=== PATIENT | male | born 2005 | race Caucasian/White ===

== ENCOUNTER 2023-03-14 18:39 | Emergency (ER) | payer BC, MEDICAID ==
[~2023-03-14] VITALS: Ht 177.8 cm; Wt 77.3 kg
[~2023-03-14 18:39] MED LIST: NO HOME MEDS
[2023-03-14 18:59] VITALS: BP 120/87
[2023-03-14] MEDS ORDERED: ibuprofen tablet 400 MG TABLET PO ONE (19:45)
[2023-03-14] MEDS ORDERED: amox tr/potassium clavulanate 875/125mg TAB PO ONE (19:45)
[2023-03-14] MEDS ORDERED: AMOX-117 PO (19:48)
[2023-03-14] MEDS ORDERED: IBUP-1986 PO (19:48)
== END 2023-03-14 20:16 | disposition home or self-care (01) ==
LOC: ER 18:39
DX: K08.89 Other specified disorders of teeth and supporting structures (principal); R22.0 Localized swelling, mass and lump, head
CPT/HCPCS: 99283

== ENCOUNTER 2023-08-16 20:25 | Emergency (ER) | payer BC, MEDICAID ==
[~2023-08-16] VITALS: Ht 172.7 cm; Wt 76.9 kg
[~2023-08-16 20:25] MED LIST changes: +IBUP-1986 PO
[2023-08-16 20:34] VITALS: BP 137/67; PULSE 118; RESP 16; TEMP 98.2; O2SAT 100
[2023-08-16 21:39] LABS: BILIRUBIN,URINE NEGATIVE (Neg); CLARITY,URINE CLEAR (Clear); COLOR,URINE STRAW (Yellow); GLUCOSE, URINE NEGATIVE (Neg); KETONES,URINE NEGATIVE (Neg); LEUKOCYTE ESTERASE ,URINE NEGATIVE (Neg); NITRITES, URINE NEGATIVE (Neg); OCCULT BLOOD,URINE NEGATIVE (Neg); PROTEIN,URINE NEGATIVE (Neg); UROBILINOGEN,URINE 0.2 E.U/dL (0.2-1.0)
[2023-08-16 21:43] LABS: UA COLLECTION TYPE CLN CATCH MIDSTREAM
== END 2023-08-16 22:18 | disposition home or self-care (01) ==
LOC: ER 20:26
DX: R30.0 Dysuria (principal); R10.30 Lower abdominal pain, unspecified; R35.0 Frequency of micturition; R33.9 Retention of urine, unspecified; Z79.899 Other long term (current) drug therapy
CPT/HCPCS: 81003; 99283

== ENCOUNTER 2023-10-07 13:13 | Emergency (ER) | payer BC, MEDICAID ==
[~2023-10-07] VITALS: Ht 175.3 cm; Wt 68.2 kg
[2023-10-07] MEDS ORDERED: AMOX-580 PO (13:57)
[2023-10-07] MEDS ORDERED: ketorolac trometh inj. 60 MG/2 ML VIAL IM ONE (14:00)
[2023-10-07 14:02] VITALS: BP 144/92; PULSE 104; TEMP 98.5; O2SAT 98
[2023-10-07 14:11] VITALS: RESP 16
[2023-10-07] MEDS ORDERED: AMOX-117 PO (14:22)
[2023-10-07] MEDS ORDERED: IBUP-1984 PO (14:22)
== END 2023-10-07 14:10 | disposition home or self-care (01) ==
LOC: ER 13:13
DX: S02.5XXA Fracture of tooth (traumatic), initial encounter for closed fracture (principal); X58.XXXA Exposure to other specified factors, initial encounter; Y93.89 Activity, other specified; Y92.89 Other specified places as the place of occurrence of the external cause; Y99.8 Other external cause status
CPT/HCPCS: 96372; 99283; J1885

== ENCOUNTER 2023-11-10 16:13 | Emergency (ER) | payer BC, MEDICAID ==
[~2023-11-10] VITALS: Ht 175.3 cm; Wt 76.2 kg
[2023-11-10 16:19] VITALS: BP 108/71; PULSE 121; RESP 17; TEMP 99.2; O2SAT 98
[2023-11-10] MEDS ORDERED: IBUP-1984 PO (17:07)
[2023-11-10] MEDS ORDERED: PENI500T2 PO (17:07)
[2023-11-10] MEDS ORDERED: CHLO473M2 PO (17:07)
== END 2023-11-10 17:08 | disposition home or self-care (01) ==
LOC: ER 16:13
DX: S02.5XXA Fracture of tooth (traumatic), initial encounter for closed fracture (principal); Z79.899 Other long term (current) drug therapy; X58.XXXA Exposure to other specified factors, initial encounter; Y93.89 Activity, other specified; Y92.89 Other specified places as the place of occurrence of the external cause; Y99.8 Other external cause status
CPT/HCPCS: 99283

== ENCOUNTER 2024-08-14 19:36 | Emergency (ER) | payer BC, MEDICAID ==
[~2024-08-14] VITALS: Ht 175.3 cm; Wt 84.4 kg
[~2024-08-14 19:36] MED LIST changes: +CHLO473M2 PO
[2024-08-14 19:43] VITALS: BP 119/79; PULSE 115; O2SAT 97
[2024-08-14 20:13] LABS: BILIRUBIN,URINE NEGATIVE (Neg); CLARITY,URINE CLEAR (Clear); COLOR,URINE STRAW (Yellow); GLUCOSE, URINE NEGATIVE (Neg); KETONES,URINE NEGATIVE (Neg); LEUKOCYTE ESTERASE ,URINE NEGATIVE (Neg); NITRITES, URINE NEGATIVE (Neg); OCCULT BLOOD,URINE NEGATIVE (Neg); PH,URINE 7.5 (4.8-8.0); PROTEIN,URINE NEGATIVE (Neg); UA COLLECTION TYPE NON-SPECIFIED; UROBILINOGEN,URINE 0.2 E.U/dL (0.2-1.0)
[2024-08-14 20:32] LABS: BASOPHILS % (AUTO) 0.6 % (0-1); EOSINOPHILS # (AUTO) 0.1 X10'3 (0-0.9); EOSINOPHILS % (AUTO) 0.9 % (0-6); HEMOGLOBIN 14.7 g/dl (14.0-17.9); LYMPHOCYTES # (AUTO) 1.8 X10'3 (1.1-4.8); LYMPHOCYTES % (AUTO) 27.3 % (21-51); MEAN CORPUSCULAR HEMOGLOBIN 31.2 PG (27.0-31.0); MEAN CORPUSCULAR VOLUME 89.1 FL (78-98); MEAN PLATELET VOLUME 8.3 FL (7.4-10.4); MONOCYTES # (AUTO) 0.6 X10'3 (0-0.9); NEUTROPHILS # (AUTO) 4.1 X10'3 (1.8-7.7); NEUTROPHILS % (AUTO) 62.2 % (42-75); PLATELET COUNT 276 X10'3 (140-440); RED BLOOD COUNT 4.72 X10'6 (4.70-6.10); RED CELL DISTRIBUTION WIDTH 13.1 % (11.5-14.5); WHITE BLOOD COUNT 6.6 X10'3 (4.5-11.0)
[2024-08-14 21:00] LABS: ALANINE AMINOTRANSFERASE 42 U/L (12-78); ALBUMIN 4.4 G/DL (3.4-5.0); ALBUMIN/GLOBULIN RATIO 1.5 (1.1-1.5); ALKALINE PHOSPHATASE 101 IU/L (46-116); ANION GAP 6 (8-16); ASPARTATE AMINO TRANSFERASE 19 U/L (10-37); BILIRUBIN,TOTAL 0.8 MG/DL (0.1-1.0); BLOOD UREA NITROGEN 14 MG/DL (7-18); BUN/CREATININE RATIO 16.3 (10.0-20.0); CALCIUM 9.1 MG/DL (8.5-10.1); CHLORIDE 106 MMOL/L (99-107); CREATININE 0.86 MG/DL (0.60-1.10); GLUCOSE 111 MG/DL (70-104); LIPASE 25 U/L (16-77); POTASSIUM 3.9 MMOL/L (3.5-5.1); SODIUM 140 MMOL/L (135-145); TOTAL CARBON DIOXIDE 27.9 MMOL/L (24-32); TOTAL PROTEIN 7.3 G/DL (6.4-8.2); eCRCL 136 ML/MIN; eGFR > 90 ML/MIN
[2024-08-14 21:33] VITALS: RESP 16
[2024-08-14] MEDS: ketorolac trometh 15mg/ml vial 15 MG/ML ML IM ONE (21:33)
[2024-08-14 23:12] VITALS: TEMP 99.1
== END 2024-08-14 23:13 | disposition home or self-care (01) ==
LOC: ER 19:37
DX: I88.0 Nonspecific mesenteric lymphadenitis (principal); Z79.899 Other long term (current) drug therapy
CPT/HCPCS: 36415; 74176; 80053; 81003; 83690; 85025; 96372; 99285; J1885